=== PATIENT | male | born 1970 | race Caucasian/White ===

== ENCOUNTER 2017-03-25 12:35 | Emergency (ER) | payer OTHER, SELFPAY ==
[2017-03-25 12:37] VITALS: BP 117/76; PULSE 71; RESP 16; TEMP 37; O2SAT 97; BMI 22.4
--- NOTE | 2017-03-25 14:53 | ED.VISSUMM ---
- ER Visit Summary Date of Service: 03/25/17 Chief Complaint: Laceration History of Present Illness: The patient is a 46 M who was using an air hammer at work. Slipped and hit the cement. A piece of the cement came up and hit him in the forehead. Did not have a loss of consciousness. He denies any pain. His tetanus is up-to-date. Physical Examination: Vitals: Stable. Afebrile. General: Well-nourished and well-developed. Head: 1 cm laceration to the midline of his forehead just below his hairline. Mild active bleeding.. Neck: Supple, no lymphadenopathy. No JVD. Nontender. Cardiovascular: Regular rate and rhythm. No murmurs. Respiratory: No respiratory distress. Clear to auscultation bilaterally. Abdominal: Soft, nontender, nondistended, normal bowel sounds. No guarding, rebound, or peritoneal signs. Back: Nontender. Extremities: Nontender, no edema. Skin: Normal color, no rash. Neurologic: Alert and oriented ?3. Cranial nerves II through XII are intact. Normal strength and sensation. Psych: Normal affect. Emergency Department Course and Treatment: Patient had the area cleansed and repaired with Dermabond. He tolerated it well. Treatment Plan: He will be discharged instructions follow-up corporate care in 1 week for another exam. Disposition: To home in improved and stable condition. Impression: 1. Laceration to forehead, 1 cm, repaired with Dermabond. This note was generated with [employer] dictation software. It may contain incorrect words, spelling, and punctuation that were not noted in review of the chart prior to signing ED Disposition - Plan for ED Patient: Disposition: Home or Assisted Living Chief Complaint: Head Injury Instructions: ED Laceration Facial Skin Glue Referrals: Corporate,Care [GROUP OF PHYSICIANS] - 1 Week
[2017-03-25 15:05] VITALS: BP 121/91; PULSE 58; RESP 16; O2SAT 100
== END 2017-03-25 15:07 | disposition home or self-care (01) ==
LOC: ED 14:59
PROVIDERS: Emergency Provider Emergency Medicine; Family Provider Family Medicine; PCP Family Medicine
DX: S01.81XA Laceration without foreign body of other part of head, initial encounter (principal); W22.8XXA Striking against or struck by other objects, initial encounter; Y93.9 Activity, unspecified; Y92.69 Other specified industrial and construction area as the place of occurrence of the external cause; Y99.0 Civilian activity done for income or pay
CPT/HCPCS: 12011; 99282

== ENCOUNTER → 2017-04-26 09:46 | Outpatient (CLI) | payer BC, SELFPAY ==
[2017-04-26 12:51] LABS: Absolute Lymphocyte Count 1.26 X10^3/ul (0.83-4.51); Absolute Neutrophil Count 2.5 X10^3/uL (2.0-7.7); Basophil# 0.02 X10^3/uL; Basophil% 0.5 % (0-1); Eosinophil# 0.12 X10^3/uL; Eosinophils% 2.8 % (0-5); Hematocrit 47.4 % (40-54); Lymphocyte # 1.26 X10^3/ul (4.0); Lymphocyte % 29.6 % (19-41); Mean Corp Hgb Conc 33.8 g/gl (32-36); Mean Platelet Vol. 12.2 fl (6.2-12.0); Monocyte# 0.37 X10^3/uL; Monocyte% 8.7 % (0-10); Neutrophil # 2.48 X10^3/uL (2.7-7.7); Neutrophil % 58.4 % (47-70); Platelet Count 181 K/mm3 (150-450); RBC Distribution Width CV 14.1 % (11.6-14.6); Red Blood Count 5.51 M/mm3 (4.6-6.2); White Blood Count 4.3 K/mm3 (4.4-11.0)
[2017-04-26 13:01] LABS: POSITIVE COUNT NO; POSITIVE DIFFERENTIAL NO; POSITIVE MORPHOLOGY NO
[2017-04-26 13:04] LABS: ALB/GLOB Ratio 1.2 RATIO (0.9-2.4); AST(SGOT) 18 U/L (15-37); Alanine Aminotransfer ALT/SGPT 30 U/L (16-61); Alkaline Phosphatase 84 U/L (45-117); Anion Gap 8 (5-15); BUN 17 mg/dL (7-18); BUN/Creat Ratio 18.4 RATIO (10-20); Calcium,Total 9.1 mg/dL (8.5-10.1); Chloride 106 mmol/L (98-107); Cholesterol 233 mg/dL (200); Creatinine, Serum 0.93 mg/dL (0.70-1.30); EST Glomerular Filtration Rate 94 mL/min (>60); Est Glom Filt Rate - Afr Amer 114 mL/min (>60); Globulin 3.2 g/dL (2.2-4.2); Glucose 82 mg/dL (74-106); High Density Lipoprotein 58 mg/dL; Potassium 4.4 mmol/L (3.5-5.1); Protein, Total 7.2 g/dL (6.4-8.2); Sodium Level 141 mmol/L (136-145); Triglycerides 66 mg/dL; Very Low Density Lipoprotein 13 mg/dL (5-40)
== END ==
PROVIDERS: Family Provider Family Medicine; PCP Family Medicine; Visit Provider Family Medicine
DX: Z13.29 Encounter for screening for other suspected endocrine disorder (principal); Z13.220 Encounter for screening for lipoid disorders; K21.9 Gastro-esophageal reflux disease without esophagitis
CPT/HCPCS: 36415; 80053; 80061; 84443; 85025

== ENCOUNTER 2017-05-24 06:24 | Day surgery (SDC) | payer BC, SELFPAY ==
[2017-05-24] VITALS (10 sets, daily range): BP systolic 75–115; BP diastolic 46–84; PULSE 52–72; RESP 18; TEMP 36–36.9; O2SAT 96–99; BMI 23.3
--- NOTE | 2017-05-24 | EGD_PTH ---
PATIENT: RAYNE HOFF LOC: EN U#:[id number] AGE/SX: 46/M ROOM: RE05/24/[address]: Dr. Kevyn Sims MD : 1970 BED: DIS: 05/24/2017 SPEC #: [id number] RECD: 05/24/17 11:05 STATUS: GEOVANNY MANJULA #: [id number] IGOR: 05/24/17 00:[address]: Kevyn Sims DEPT: SURGICAL PATHOLOGY RECD BY: Seth Hernandez ENTERED: 05/24/17 12:39 SP TYPE: EGD BIOPSY DANDRE DR: Dr. Krunal Ness MD Tissues: A - Esophageal mucous membrane B - Gastric mucous membrane C - Gastric mucous membrane D - Esophageal mucous membrane E - Esophageal mucous membrane F - Esophageal mucous membrane Procedures: Surgery Specimen Level IV HEADER OPERATION: EGD PRE-OP DIAGNOSIS: GERD TISSUE SUBMITTED: A - Biopsy proximal esophageal stricture, B - Gastric polyp biopsy, C - Antral biopsy, D - Distal esophagus biopsy, E - Mid esophageal biopsy, F - Proximal esophageal biopsy MICROSCOPIC DIAGNOSIS A. Proximal esophageal stricture, biopsy: Fragments of benign superficial squamous epithelium. B. Gastric polyp, biopsy: Fundic gland polyp. C. Gastric antrum, biopsy: Mild chronic gastritis. D. Distal esophagus, biopsy: Consistent with reflux esophagitis. E. Mid esophagus, biopsy: Eosinophilic esophagitis. F. Proximal esophagus, biopsy: Eosinophilic esophagitis. AM:anthony 05/25/17 COMMENT A. There is no evidence of dysplasia or inflammation. Clinical correlation is suggested. C. The results of immunohistochemistry for Helicobacter pylori will be reported separately ([id number]). D. Junctional mucosa is not represented in the biopsy. Clinical correlation is suggested. MICROSCOPIC DESCRIPTION Slides are reviewed. GROSS DESCRIPTION A - Received in fixative is one container labeled with the patient's name and designated proximal esophageal stricture biopsy. The specimen consists of multiple irregular fragments of light mayfield soft tissue that in aggregate measure 0.5 x 0.3 x 0.1 cm. The specimen is totally submitted in one cassette. B - Received in fixative is one container labeled with the patient's name and designated gastric polyp biopsy. The specimen consists of one irregular fragment of light mayfield soft tissue that measures 0.3 x 0.3 x 0.1 cm. The specimen is totally submitted in one cassette. C - Received in fixative is one container labeled with the patient's name and designated antral biopsy. The specimen consists of one irregular fragment of light mayfield soft tissue that measures 0.3 x 0.2 x 0.1 cm. The specimen is totally submitted in one cassette. D - Received in fixative is one container labeled with the patient's name and designated distal esophagus biopsy. The specimen consists of multiple irregular fragments of light mayfield soft tissue that in aggregate measure 0.5 x 0.5 x 0.1 cm. The specimen is totally submitted in one cassette. E - Received in fixative is one container labeled with the patient's name and designated mid esophageal biopsy. The specimen consists of multiple irregular fragments of light mayfield soft tissue that in aggregate measure 0.5 x 0.4 x 0.1 cm. The specimen is totally submitted in one cassette. F - Received in fixative is one container labeled with the patient's name and designated proximal esophageal biopsy. The specimen consists of one irregular fragment of light mayfield soft tissue that measures 0.5 x 0.1 x 0.1 cm. The specimen is totally submitted in one cassette. / AKIKO:anthony 05/24/17 TC:3 CPT: 36255 x6
--- NOTE | 2017-05-24 | IMM_PTH ---
PATIENT: RAYNE HOFF LOC: EN U#:[id number] AGE/SX: 46/M ROOM: RE05/24/[address]: Dr. Kevyn Sims MD : 1970 BED: DIS: 05/24/2017 SPEC #: [id number] RECD: 05/25/17 09:58 STATUS: GEOVANNY MANJULA #: [id number] IGOR: 05/24/17 00:[address]: Kevyn Sims DEPT: IMMUNOHISTOCHEMISTRY RECD BY: Chiara Andrea ENTERED: 05/25/17 09:59 SP TYPE: IMMUNO OTHR DR: Dr. Krunal Ness MD Tissues: B - Stomach, NOS Procedures: H Pylori (initial) PHYSICIAN & INSTITUTION [place] [id number] SPECIMEN INFORMATION: Tissue Source: B ? Gastric polyp biopsy Clinical Info: GERD Specimen Number: [id number] CPT code: 11866 METHODOLOGY: Deparaffinized sections of prefer/formalin-fixed tissue or PAP/DQ stained slides are incubated with monoclonal/polyclonal antibodies/oligonucleotide probes. Localization is made via biotin free immunoperoxidase method. Appropriate controls are performed and reacted as expected. Results on target cell population are indicated in the following table: RESULTS: ANTIBODY / CLONE RESULT Block B H Pylori (polyclonal) negative These tests were developed and their performance characteristics determined by [facility]. They may not have been cleared or approved by the U.S. Food and Drug Administration. The FDA has determined that such clearance or approval is not necessary. INTERPRETATION: B. Gastric polyp, biopsy: Negative for Helicobacter pylori organisms. AM:anthony 05/25/17
--- NOTE | 2017-05-24 08:48 | PCM.OPRPT ---
Problem List (1) Gastroesophageal reflux disease Status: Acute Qualifiers: Esophagitis presence: esophagitis presence not specified Report of Operation Date of Procedure: 05/24/17 Pre-Operative Diagnosis: Suspected esophagitis Post-Operative Diagnosis: Proximal esophageal stricture requiring dilatation for advancement of scope. Scalloping of the esophagus suspicious for eosinophilic esophagitis. Widely patent EG junction with distal esophagitis. Sessile polyps of the body of the stomach Surgery/Procedure Performed:: Esophagogastroduodenoscopy with proximal esophageal 10 mm hydrostatic dilatation. Esophageal biopsies. Gastric fundic polyp biopsy. Antral biopsy. Miller pH probe placement Description of Surgical Findings:: .Informed consent was obtained. 46-year-old gent was taken to the endoscopy suite. His oropharynx anesthetized with Topex. In aliquots throughout the procedure he received total 150 mg Demerol and 6 mg of Versed is intravenous sedation. Under direct physician G of gastroscope was inserted into the esophageal inlet but within 5-6 cm a tight esophageal stricture was identified. There appear to be scalloping distal to that. The findings were suspicious for eosinophilic esophagitis. I could not advance the scope however past the very proximal stricture. I took biopsies of the proximal stricture. I then inserted a 10 mm hydrostatic balloon and insufflated that to pressure. Holding that for 1 minute. I then deflated the balloon. I was able to include just advance the scope past that area. There was scalloping of the esophagus throughout. The EG junction was widely open and there appear to be distal esophagitis. The EG junction was at 40 cm. The scope was advanced into the stomach. There was some scattered body of the stomach fundic polyps. The antrum was not remarkable. Scope was advanced through the pylorus and the first and second portions of the duodenum were normal. The scope was withdrawn back in the stomach retroflexed the hiatal hernia noted. The cardia was otherwise unremarkable. The scope was placed back in antegrade viewing position. Sample was obtained of the antrum. A customer service representative teacher sample of 1 of the polyps was performed. Excess fluid and air was aspirated free. The scope was withdrawn into the distal esophagus where the hiatal hernia was noted. Distal esophageal biopsies were obtained. Mid esophageal biopsies were obtained. Proximal esophageal biopsies were obtained. Then the scope was removed. The pH probe was placed at 34 cm section was applied it was deployed. The scope was reinserted and the probe was noted to be in good position. The procedure was completed with the patient tolerating it well. Impression Proximal esophageal stricture requiring hydrostatic dilatation to advance the scope. Dilatation was performed to 10 mm. Scalloping of the esophagus suspicious for eosinophilic esophagitis Distal esophagitis noted with widely patent EG junction Hiatal hernia Gastric body polyp I will asked the patient return to my office in 1 week's time to review otology results and pH probe readings. We will then consider ongoing treatment measures. The patient is already being treated with omeprazole. Cc: Dr. Krunal Ness Procedure was started at 0819. Scope was inserted at 0823. Procedure was completed at 0841. Kevyn Sims M.D., F.A.C.S. Type of Anesthesia:: IV Sedation
== END 2017-05-24 09:55 | disposition home or self-care (01) ==
LOC: EN 06:25 → AC 06:26
PROVIDERS: Family Provider Family Medicine; PCP Family Medicine; Visit Provider Surgery
PROC: (CPT 43235; principal; 2017-05-24 07:55)
DX: K22.2 Esophageal obstruction (principal); K44.9 Diaphragmatic hernia without obstruction or gangrene; K31.7 Polyp of stomach and duodenum; K29.50 Unspecified chronic gastritis without bleeding; K21.0 Gastro-esophageal reflux disease with esophagitis; Z87.891 Personal history of nicotine dependence
CPT/HCPCS: 43239; 43249; 88305; 88342; 99152; 99153; J7120; C1726

== ENCOUNTER → 2020-03-21 16:29 | Outpatient (CLI) | payer BC, SELFPAY ==
[2017-05-24 07:01] VITALS: BMI 23.3
[2020-03-21 17:35] LABS: Absolute Lymphocyte Count 1.67 X10^3/uL (0.83-4.51); Absolute Neutrophil Count 3.4 X10^3/uL (2.0-7.7); Basophil# 0.04 X10^3/uL; Basophil% 0.7 % (0-1); Eosinophil# 0.22 X10^3/uL; Eosinophils% 3.8 % (0-5); Hematocrit 46.1 % (40-54); Hemoglobin 14.8 g/dL (13.0-16.5); Lymphocyte # 1.67 X10^3/ul (4.0); Lymphocyte % 29.1 % (19-41); Mean Corp Hgb Conc 32.1 g/dL (32-36); Mean Corpuscular Hgb 28.3 pg (27.0-32.0); Mean Corpuscular Volume 88.1 fL (80-94); Mean Platelet Vol. 12.1 fl (6.2-12.0); NRBC Flagged by Analyzer 0 % (0-5); Neutrophil % 59.2 % (47-70); Platelet Count 197 K/mm3 (150-450); RBC Distribution Width CV 13.9 % (11.6-14.6); Red Blood Count 5.23 M/mm3 (4.6-6.2); White Blood Count 5.7 K/mm3 (4.4-11.0)
[2020-03-21 17:56] LABS: ALB/GLOB Ratio 1.1 RATIO (0.9-2.4); AST(SGOT) 12 U/L (15-37); Alanine Aminotransfer ALT/SGPT 20 U/L (16-61); Albumin, Serum 3.7 g/dL (3.2-5.0); Alkaline Phosphatase 109 U/L (45-117); Anion Gap 5 (5-15); BUN 18 mg/dL (7-18); BUN/Creat Ratio 17.5 RATIO (10-20); Calcium,Total 8.5 mg/dL (8.5-10.1); Chloride 108 mmol/L (98-107); Cholesterol 225 mg/dL (200); Creatinine, Serum 1.03 mg/dL (0.70-1.30); EST Glomerular Filtration Rate 82 mL/min (>60); Est Glom Filt Rate - Afr Amer 99 mL/min (>60); Globulin 3.3 g/dL (2.2-4.2); Glucose 83 mg/dL (74-106); High Density Lipoprotein 48 mg/dL; Potassium 3.9 mmol/L (3.5-5.1); Sodium Level 139 mmol/L (136-145); Triglycerides 161 mg/dL; Very Low Density Lipoprotein 32 mg/dL (5-40)
== END ==
PROVIDERS: PCP Family Medicine; Visit Provider Family Medicine
DX: Z00.8 Encounter for other general examination (principal)
CPT/HCPCS: 36415; 80053; 80061; 85025

== ENCOUNTER → 2023-04-08 | Outpatient (CLI) | payer OTHER, SELFPAY ==
[2023-04-08 16:19] LABS: Bacteria 0 SEEN /hpf (None Seen); Red Blood Cells-Urine 0 SEEN /hpf (0-5); Squamous Epithelial Cells - UA 0 SEEN /hpf (0-5); White Blood Cells 0 SEEN /hpf (0-5)
[2023-04-08 17:30] LABS: Absolute Lymphocyte Count 1.86 X10^3/uL (0.83-4.51); Absolute Neutrophil Count 2.9 X10^3/uL (2.0-7.7); Basophil# 0.05 X10^3/uL; Basophil% 0.9 % (0-1); Eosinophil# 0.19 X10^3/uL; Eosinophils% 3.4 % (0-5); Hematocrit 45.2 % (40-54); Hemoglobin 14.5 g/dL (13.0-16.5); Lymphocyte # 1.86 X10^3/ul (0.83-4.51); Lymphocyte % 33.7 % (19-41); Mean Corp Hgb Conc 32.1 g/dL (32-36); Mean Corpuscular Hgb 28.2 pg (27.0-32.0); Mean Corpuscular Volume 87.9 fL (80-94); Mean Platelet Vol. 11.8 fl (6.2-12.0); Monocyte# 0.49 X10^3/uL; Monocyte% 8.9 % (0-10); NRBC Flagged by Analyzer 0 % (0-5); Neutrophil # 2.92 X10^3/uL (2.7-7.7); Neutrophil % 52.9 % (47-70); Platelet Count 199 K/mm3 (150-450); RBC Distribution Width CV 14.2 % (11.6-14.6); RBC Distribution Width SD 45.5 fl (35.1-43.9); Red Blood Count 5.14 M/mm3 (4.6-6.2); White Blood Count 5.5 K/mm3 (4.4-11.0)
[2023-04-08 17:37] LABS: Color, Urine Yellow (Yellow); Glucose, Dipstick Normal (Normal); Ketone-Dipstick Negative (Negative); Leukocyte Esterase-Dipstick Negative /ul (Negative); Nitrite-Dipstick Negative (Negative); Occult Blood-Urine Negative /ul (Negative); Protein-Dipstick 15 mg/dl (Negative); Urine Bilirubin Dipstick Negative (Negative); Urine Clarity Clear (Clear); Urine Urobilinogen 1 mg/dl (Normal)
[2023-04-08 17:51] LABS: Mucous, Urine 1+ /hpf (<or=2+)
[2023-04-08 18:05] LABS: ALB/GLOB Ratio 1.2 RATIO (0.9-2.4); AST(SGOT) 15 U/L (15-37); Alanine Aminotransfer ALT/SGPT 27 U/L (16-61); Albumin, Serum 3.9 g/dL (3.2-5.0); Alkaline Phosphatase 96 U/L (45-117); Anion Gap 4 (5-15); BUN 15 mg/dL (7-18); BUN/Creat Ratio 14.7 RATIO (10-20); Chloride 109 mmol/L (98-107); Cholesterol 222 mg/dL (200); Creatinine, Serum 1.02 mg/dL (0.70-1.30); EST Glomerular Filtration Rate 82 mL/min (>60); Est Glom Filt Rate - Afr Amer 99 mL/min (>60); Globulin 3.2 g/dL (2.2-4.2); Glucose 92 mg/dL (74-106); High Density Lipoprotein 52 mg/dL; Potassium 4.3 mmol/L (3.5-5.1); Protein, Total 7.1 g/dL (6.4-8.2); Sodium Level 141 mmol/L (136-145); Thyroid Stim Hormone (TSH) 2.18 uIU/mL (0.358-3.74); Triglycerides 131 mg/dL; Very Low Density Lipoprotein 26 mg/dL (5-40)
== END | disposition home or self-care (01) ==
LOC: MFPLAB 16:17
PROVIDERS: PCP Family Medicine; Visit Provider Family Medicine
DX: Z00.00 Encounter for general adult medical examination without abnormal findings (principal)
CPT/HCPCS: 36415; 80053; 80061; 81001; 84443; 85025

== ENCOUNTER 2023-08-15 06:57 | Emergency (ER) | payer OTHER, SELFPAY ==
[2023-08-15 06:58] VITALS: BP 130/87; PULSE 77; RESP 16; TEMP 36.6; O2SAT 96; BMI 24.3
[2023-08-15 07:09] VITALS: BP 130/87; PULSE 87; RESP 18; O2SAT 98
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
--- NOTE | 2023-08-15 07:16 | ED.RN ---
requested cat scan results from pt's visit to [facility]. Spoke to nursing explosive operator supervisor, fax number [phone]
[2023-08-15 08:15] VITALS: BP 130/88; PULSE 82; RESP 18; TEMP 36.6; O2SAT 98
== END 2023-08-15 08:15 | disposition home or self-care (01) ==
PROVIDERS: Emergency Provider Emergency Medicine; PCP Family Medicine; Visit Provider Emergency Medicine
DX: S40.012A Contusion of left shoulder, initial encounter (principal); M25.512 Pain in left shoulder; Y92.410 Unspecified street and highway as the place of occurrence of the external cause; Z87.891 Personal history of nicotine dependence; S40.812A Abrasion of left upper arm, initial encounter; K00.6 Disturbances in tooth eruption
CPT/HCPCS: 73030; 73060; 99282

== ENCOUNTER 2023-11-17 07:49 | Day surgery (SDC) | payer OTHER, SELFPAY ==
--- NOTE | 2023-11-08 13:49 | EKG12_ITS ---
Test Reason : PRE OP Blood Pressure : / mmHG Vent. Rate : 047 BPM Atrial Rate : 047 BPM P-R Int : 144 ms QRS Dur : 078 ms QT Int : 406 ms P-R-T Axes : 101 045 034 degrees QTc Int : 359 ms Sinus bradycardia Otherwise normal ECG Confirmed by JEFFRY WATKINS, SALENA ([id number]), state editor KENDRA BEAN ([id number]) on 11/09/2023 10:45:50 AM Referred By: Jose Bazzi Confirmed By:SALENA TERAN MD
[2023-11-08 14:48] LABS: Absolute Lymphocyte Count 1.65 X10^3/uL (0.83-4.51); Absolute Neutrophil Count 3.8 X10^3/uL (2.0-7.7); Basophil# 0.04 X10^3/uL; Basophil% 0.6 % (0-1); Eosinophil# 0.24 X10^3/uL; Eosinophils% 3.9 % (0-5); Hematocrit 43.9 % (40-54); Lymphocyte # 1.65 X10^3/ul (0.83-4.51); Lymphocyte % 26.6 % (19-41); Mean Corp Hgb Conc 31.9 g/dL (32-36); Mean Corpuscular Volume 87.8 fL (80-94); Mean Platelet Vol. 11.4 fl (6.2-12.0); Monocyte# 0.49 X10^3/uL; Monocyte% 7.9 % (0-10); NRBC Flagged by Analyzer 0 % (0-5); Neutrophil # 3.77 X10^3/uL (2.7-7.7); Neutrophil % 60.7 % (47-70); Platelet Count 187 K/mm3 (150-450); RBC Distribution Width CV 14.4 % (11.6-14.6); RBC Distribution Width SD 46.1 fl (35.1-43.9); White Blood Count 6.2 K/mm3 (4.4-11.0)
[2023-11-08 15:18] LABS: Anion Gap 2 (5-15); BUN 12 mg/dL (7-18); BUN/Creat Ratio 12.8 RATIO (10-20); Calcium,Total 9.4 mg/dL (8.5-10.1); Chloride 105 mmol/L (98-107); Creatinine, Serum 0.94 mg/dL (0.70-1.30); EST Glomerular Filtration Rate 90 mL/min (>60); Est Glom Filt Rate - Afr Amer 109 mL/min (>60); Glucose 95 mg/dL (74-106); Potassium 3.8 mmol/L (3.5-5.1); Sodium Level 137 mmol/L (136-145)
[2023-11-17] VITALS (10 sets, daily range): BP systolic 119–132; BP diastolic 86–98; PULSE 60–92; RESP 16–18; TEMP 36–36.7; O2SAT 97–100; BMI 24.2
[2023-11-17] MEDS: Lactated Ringers 1,000 ML 15 ML IV (08:13)
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
[2023-11-17] MEDS: Cefazolin 2 GM in 0.9% Normal Saline (100mL Bag) 100 ML IV (10:47)
[2023-11-17] MEDS: Epinephrine (1 mg/ml) 1 MG/ML VIAL (11:13)
--- NOTE | 2023-11-17 13:16 | PCM.POST.ANE ---
Anesthesia: Postop Eval I Current Vital Signs Temperature: 96.8 F Pulse Rate: 84 Blood Pressure: 132/90 Respiratory Rate: 18 Pulse Ox: 99 Oxygen Delivery Method: Room Air Assessment Airway patent: Yes Spontaneous unlabored respirations: Yes Mental status: Awake and Calm nausea: No Vomiting: No Anesthesia Complication: No Fluid Hydration Crystalloid volume administer (ml): 1,200 Total IV fluid infused: 1,200 Progress Note Anesthesia document: Postop Eval 1 completed: Yes
--- NOTE | 2023-11-17 13:38 | POSTOPAN2_ITS ---
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 Spontaneous unlabored Yes 11/17/23 13:17 [email or web address] respirations Mental status Awake,Calm 11/17/23 13:17 [email or web address] nausea No 11/17/23 13:17 [email or web address] Vomiting No 11/17/23 13:17 [email or web address] Anesthesia Postop Eval I: Fluid Summary Crystalloid volume administer 1,200 11/17/23 13:17 [email or web address] (ml) Colloids volume administered ( ml) Blood Product volume administered (ml) Total IV fluid infused 1,200 11/17/23 13:17 [email or web address] Anesthesia Postop Eval I: Summary Notes Anesthesia Complication No 11/17/23 13:17 [email or web address] Anesthesia Complication Comment: Post-operative progress note Anesthesia: Postop Eval II Evaluation Mental status: Awake Pain Level: 0 nausea: No Vomiting: No
--- NOTE | 2023-11-17 13:38 | PCM.POSTANE2 ---
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 Spontaneous unlabored Yes 11/17/23 13:17 [email or web address] [email or web address] respirations Mental status Awake,Calm 11/17/23 13:17 [email or web address] [email or web address] nausea No 11/17/23 13:17 [email or web address] [email or web address] Vomiting No 11/17/23 13:17 [email or web address] Anesthesia Postop Eval I: Fluid Summary Crystalloid volume administer 1,200 11/17/23 13:17 [email or web address] (ml) Colloids volume administered ( ml) Blood Product volume administered (ml) Total IV fluid infused 1,200 11/17/23 13:17 [email or web address] [email or web address] Anesthesia Postop Eval I: Summary Notes Anesthesia Complication No 11/17/23 13:17 [email or web address] Anesthesia Complication Comment: Post-operative progress note Anesthesia: Postop Eval II Evaluation Mental status: Awake Pain Level: 0 nausea: No Vomiting: No
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
[2023-11-17] MEDS: Ketorolac 15 MG/ML Vial IV (14:04)
== END 2023-11-17 15:00 | disposition home or self-care (01) ==
LOC: SDC 07:51 → AC 07:52
PROVIDERS: PCP Family Medicine; Referring Provider Student in an Organized Health Care Education/Training Program; Visit Provider Student in an Organized Health Care Education/Training Program
PROC: (CPT 29827; principal; 2023-11-17 09:45)
DX: S43.432A Superior glenoid labrum lesion of left shoulder, initial encounter (principal); M19.012 Primary osteoarthritis, left shoulder; V89.2XXA Person injured in unspecified motor-vehicle accident, traffic, initial encounter; M75.102 Unspecified rotator cuff tear or rupture of left shoulder, not specified as traumatic; M75.42 Impingement syndrome of left shoulder; M75.120 Complete rotator cuff tear or rupture of unspecified shoulder, not specified as traumatic; Z90.49 Acquired absence of other specified parts of digestive tract; Z96.22 Myringotomy tube(s) status; K21.9 Gastro-esophageal reflux disease without esophagitis
CPT/HCPCS: 29826; 29827; 23430; 29824; 36415; 80048; 85025; 93005; C1713; J7120; J2405